=== PATIENT | female | born 1965 | race Caucasian/White ===

== ENCOUNTER 2020-08-04 20:22 | Emergency (ER) | payer OTHER ==
[~2020-08-04] VITALS: Ht 160 cm; Wt 79.9 kg
[2020-08-04 20:27] VITALS: BP 122/93
--- NOTE | 2020-08-04 20:35 | NUR ---
Pt ambulates and changes to gown for evaluation. Pt was at work lifting case of water when felt low back pain. Pt has hx of low back pain. Denies loss of bowel or bladder control. AIDET provided.
--- NOTE | 2020-08-04 21:46 | NUR ---
pa at bedside to assess, pt states that she wants to leave as quickly as possible
== END 2020-08-04 22:08 | disposition home or self-care (01) ==
LOC: ED 21:31
DX: S39.012A Strain of muscle, fascia and tendon of lower back, initial encounter (principal); X58.XXXA Exposure to other specified factors, initial encounter; Y93.89 Activity, other specified; Y92.89 Other specified places as the place of occurrence of the external cause; Y99.8 Other external cause status
CPT/HCPCS: 99283

== ENCOUNTER 2020-11-01 14:41 | Emergency (ER) | payer MEDICAID, OTHER ==
[~2020-11-01] VITALS: Ht 157.5 cm; Wt 79.2 kg
[2020-11-01 15:28] LABS: BASOPHILS % (AUTO) 1 % (0-1); EOSINOPHILS % (AUTO) 1 % (1-7); LYMPHOCYTES % (AUTO) 36 % (22-44); MEAN CORPUSCULAR HEMOGLOBIN 29.2 pg (27.0-34.8); MEAN CORPUSCULAR HGB CONC 33.9 g/dL (32.4-35.8); MEAN PLATELET VOLUME 9.9 fL (7.4-10.4); MONOCYTES % (AUTO) 5 % (2-9); NEUTROPHILS % (AUTO) 58 % (42-75); PLATELET COUNT 213 x10^3/uL (130-400); RED BLOOD COUNT 5.56 x10^6/uL (3.82-5.3); RED CELL DISTRIBUTION WIDTH 14.3 % (9.6-15.2)
[2020-11-01 15:38] LABS: ALBUMIN 3.9 g/dL (3.4-5.0); ANION GAP 6 mmol/L (5-15); CALCIUM 9.1 mg/dL (8.5-10.1); CHLORIDE 108 mmol/L (98-107); CREATININE 0.82 mg/dL (0.55-1.02)
[2020-11-01 15:43] LABS: TROPONIN I < 0.015 ng/mL (0.000-0.045)
[2020-11-01 16:25] VITALS: BP 146/95
--- NOTE | 2020-11-01 16:56 | NUR ---
PT REC'VD DISCHARGE INSTRUCTIONS AND EDUCATION. PT HAD NO FURTHER QUESTIONS. PT AMBULATED WITH FAMILY TO DC AREA.
== END 2020-11-01 16:59 | disposition home or self-care (01) ==
LOC: ED 16:50
DX: I10 Essential (primary) hypertension (principal); R07.89 Other chest pain; M79.602 Pain in left arm; F17.200 Nicotine dependence, unspecified, uncomplicated
CPT/HCPCS: 36415; 71045; 80048; 82040; 84484; 85025; 93005; 99285